=== PATIENT | female | born 1995 ===

== ENCOUNTER 2018-05-22 17:37 | Emergency (ER) | payer BC ==
[2018-05-22 17:52] VITALS: RESP 18
[2018-05-22 18:55] LABS: SQUAMOUS EPITHIAL 1 /hpf (0-5); URINE BILIRUBIN NEGATIVE (NEGATIVE); URINE BLOOD NEGATIVE (NEGATIVE); URINE CLARITY Clear (Clear); URINE COLOR Yellow (YELLOW); URINE GLUCOSE (UA) NORMAL (Normal); URINE LEUKOCYTE ESTERASE TRACE Leu/uL (Negative); URINE PROTEIN NEGATIVE (NEGATIVE); URINE UROBILINOGEN NORMAL mg/dL (0.2-1.0)
[2018-05-22 18:56] LABS: HCG,QUALITATIVE URINE NEGATIVE (NEGATIVE)
[2018-05-22 19:23] LABS: BASO # 0.1 K/uL (0.0-0.2); BASO % 0.6 % (0.0-2.0); EOS % 0.1 % (0.0-4.0); HEMOGLOBIN 13.9 g/dL (11.0-16.0); LYMPH % 7.2 % (20.0-40.0); MEAN CELL VOLUME 86.4 fL (81.0-99.0); MEAN CORPUSCULAR HEMOGLOBIN 28.5 pg (27.0-31.0); MEAN PLATELET VOLUME 8.2 fL (7.2-11.7); MONO # 0.4 K/uL (0.0-0.8); MONO % 3.1 % (0.0-10.0); NEUT # 11.9 K/uL (1.8-7.0); PLATELET COUNT 310 K/uL (130-400); RBC 4.86 Mil/uL (3.80-5.20); RED CELL DISTRIBUTION WIDTH 12.4 % (11.5-14.5); WHITE BLOOD COUNT 13.4 K/uL (4.8-10.8)
--- NOTE | 2018-05-22 19:25 | C.PDOC ---
History Of Present Illness 23 year old female presents to the ED c/o epigastric abdominal pain associated with nausea and vomiting for the past 3 days. Patient reports some bright red blood with her seema 3 days ago that resolved now. Patient states similar ep isodes in the past with no prior GI workup. Patient reports new onset bright red blood with her stool, patient states having normal bowel movements since. Patient also reports having new onset associated nausea and vomiting, patient still feeling nauseous now. Patient denies fever, chills, diarrhea, back pain, dysuria, hematuria, rash, recent travel, rectal pain. Time Seen by Provider: 05/22/18 19:12 Chief Complaint (Nursing): Abdominal Pain History Per: Patient History/Exam Limitations: no limitations Onset/Duration Of Symptoms: Days (3) Current Symptoms Are (Timing): Still Present Location Of Pain/Discomfort: Epigastric Quality Of Discomfort: "Pain" Associated Symptoms: Nausea, Vomiting. denies: Diarrhea, Urinary Symptoms Recent travel outside of the [place]: No Additional History Per: Patient Abnormal Vaginal Bleeding: No Past Medical History Reviewed: Historical Data, Nursing Documentation, Vital Signs Vital Signs: Last Vital Signs Temp 98.1 F 05/22/18 17:47 Pulse 108 H 05/22/18 17:47 Resp 18 05/22/18 17:47 BP 138/96 H 05/22/18 17:47 Pulse Ox 99 05/22/18 17:47 - Medical History PMH: No Chronic Diseases Surgical History: No Surg Hx Family History: States: Unknown Family Hx - Social History Hx Alcohol Use: No Hx Substance Use: No - Immunization History Hx Tetanus Toxoid Vaccination: No Hx Influenza Vaccination: No Hx Pneumococcal Vaccination: No Review Of Systems Constitutional: Negative for: Fever, Chills Cardiovascular: Negative for: Chest Pain Respiratory: Negative for: Cough, Shortness of Breath Gastrointestinal: Positive for: Nausea, Vomiting, Abdominal Pain. Negative for: Diarrhea, Rectal Pain Genitourinary: Negative for: Dysuria, Hematuria, Vaginal Discharge, Vaginal Bleeding Skin: Negative for: Rash Neurological: Negative for: Weakness, Numbness, Headache, Dizziness Physical Exam - Physical Exam Appears: Non-toxic, No Acute Distress Skin: Normal Color, Warm, Dry Head: Atraumatic, Normacephalic Eye(s): bilateral: Normal Inspection Oral Mucosa: Moist Neck: Normal ROM, Supple Chest: Symmetrical Cardiovascular: Rhythm Regular Respiratory: Normal Breath Sounds, No Rales, No Rhonchi, No Wheezing Gastrointestinal/Abdominal: Soft, Tenderness (epigastric), No Guarding, No Rebound, Other (obese) Back: No CVA Tenderness Extremity: Normal ROM, No Tenderness, No Swelling Neurological/Psych: Oriented x3, Normal Speech, Normal Cognition Gait: Steady ED Course And Treatment - Laboratory Results Result Diagrams: 05/22/18 19:20 05/22/18 19:20 O2 Sat by Pulse Oximetry: 99 (ON RA) Pulse Ox Interpretation: Normal - CT Scan/US CT abd/pelvis Other Rad Studies (CT/US): Read By Radiologist, Radiology Report Reviewed CT/US Interpretation: EXAM: CT Abdomen and Pelvis with IV contrast. CLINICAL HISTORY: Epigastric pain/nausea/vomiting/rectal bleed. TECHNIQUE: Axial computed tomography images of the abdomen and pelvis with intravenous contrast. 0.00 mGy-cm. CONTRAST: With; 100MLS VISI 320. COMPARISON: None provided. FINDINGS: LUNG BASES: The lung bases appear clear. No pleural effusions are seen. LIVER: Unremarkable. GALLBLADDER AND BILE DUCTS: The gallbladder appears within normal limits. No radioopaque gallstones are seen. No biliary ductal dilatation is evident. PANCREAS: Unremarkable. SPLEEN: Unremarkable. ADRENAL GLANDS: Unremarkable. KIDNEYS, URETERS, AND BLADDER: The kidneys appear within normal limits. There is no hydronephrosis or hydroureter. No urinary calculi are seen. STOMACH AND BOWEL: Unremarkable appearance of the stomach and bowel. No evidence of bowel obstruction. No evidence suggesting enteritis or colitis. APPENDIX: No evidence of acute appendicitis on CT examination. PERITONEUM: No free fluid. No free air. LYMPH NODES: Innumerable mesenteric lymph nodes are present associated with mild mesenteric inflammatory changes consistent with mesenteric lymphadenitis. REPRODUCTIVE: Uterus and ovaries are unremarkable. VASCULATURE: No evidence of abdominal aortic aneurysm. BONES: No aggressive appearing osseous lesion. No acute osseous pathology evident. IMPRESSION: Innumerable mesenteric lymph nodes are present associated with mild mesenteric inflammatory changes consistent with mesenteric lymphadenitis. . Electronically signed on May 22, 2018 8:59:25 PM EST by: Mino Gaines M.D., CIRO Certified By ABR & CBCCT. Fellowship Trained M [facility] and CT Specialist Progress - Re-Evaluation Re-evaluation Note: 05/22/18 21:19 FEELS BETTER , NO S/S ACUTE ABD. CT REPORT REVIEWED - Data Reviewed Data Reviewed: Lab, Diagnostic imaging, Old records Medical Decision Making Medical Decision Making: Plan: * Labs * CT abd/pelvis * Morphine 2 mg IVP * Zofran 4 mg IVP * UA Disposition Counseled Patient/Family Regarding: Studies Performed, Diagnosis, Need For Followup, Rx Given - Disposition Referrals: YOUR,PMD [Other] Disposition: HOME/ ROUTINE Disposition Time: 21:20 Condition: IMPROVED Additional Instructions: FOLLOW UP WITH YOUR PMD, POSSIBLE SENIOR TAX SPECIALIST. RETURN IF WORSENING SYMPTOMS. Prescriptions: Dicyclomine [Bentyl] 20 mg PO TID PRN #12 tab PRN Reason: Pain Ondansetron ODT [Zofran ODT] 4 mg PO TID PRN #12 odt PRN Reason: Nausea/Vomiting Instructions: Bloody Stools, Adult (DC), Acute Abdomen (Belly Pain), Adult (DC) Forms: [facility] (Telugu), Work Excuse - Clinical Impression Clinical Impression: Abdominal pain, Rectal bleed - Scribe Statement The provider has reviewed the documentation as recorded by the Scribvadim Corbett All medical record entries made by the Loribvadim were at my direction and personally dictated by me. I have reviewed the chart and agree that the record accurately reflects my personal performance of the history, physical exam, medical decision making, and the department course for this patient. I have also personally directed, reviewed, and agree with the discharge instructions and disposition.
[2018-05-22 19:46] LABS: ALB/GLOB RATIO 1.6 (1.0-2.1); ALBUMIN 4.9 g/dL (3.5-5.0); ALT/SGPT 32 U/L (9-52); AST/SGOT 22 U/L (14-36); BLOOD UREA NITROGEN 11 mg/dL (7-17); CALCIUM 9.4 mg/dl (8.6-10.4); GFR NON-AFRICAN AMERICAN > 60
[2018-05-22 19:53] LABS: LYMPHOCYTE 2 % (20-40); MONOCYTE 3 % (0-10); NEUTROPHIL 95 % (50-75); PLATELET ESTIMATE NORMAL (NORMAL); TOTAL CELLS COUNTED 100
[2018-05-22] MEDS ORDERED: Iodixanol 320 MG/ML 100 ML BOTTLE IV ONE (20:03)
[2018-05-22 20:33] VITALS: BP 136/79; PULSE 87; TEMP 98
[2018-05-22 21:00] VITALS: O2SAT 99
--- NOTE | 2018-05-23 10:21 | CT ---
Date of service: 05/22/2018 PROCEDURE: CT Abdomen and Pelvis with contrast HISTORY: abd pain epig nv, brbpr COMPARISON: None available. TECHNIQUE: CT scan of the abdomen and pelvis was performed after administration of intravenous contrast. Oral contrast was not administered. Coronal and sagittal reformatted images were obtained. Contrast dose: Radiation dose: Total exam DLP = 1144.19 mGy-cm. This CT exam was performed using one or more of the following dose reduction techniques: Automated exposure control, adjustment of the mA and/or kV according to patient size, and/or use of iterative reconstruction technique. FINDINGS: LOWER THORAX: The visualized lungs are clear. LIVER: Normal in size with homogeneous enhancement. No gross lesion or ductal dilatation. GALLBLADDER AND BILE DUCTS: Well distended. No calcified gallstones, wall thickening or pericholecystic fluid. PANCREAS: Normal in size with homogeneous enhancement. No gross lesion or ductal dilatation. SPLEEN: There is mild splenomegaly. There is a 1.3 cm fluid density lesion in the anterior aspect of the interpolar region of the spleen which may represent a cyst or hemangioma. ADRENALS: No discrete nodule. KIDNEYS AND URETERS: Normal in size with homogeneous enhancement. No hydronephrosis. No solid mass. VASCULATURE: No aortic aneurysm. BOWEL: Evaluation of the bowel is limited in the absence of oral contrast. The small bowel loops are normal in caliber. The colon is grossly normal in appearance. No bowel wall thickening or obstruction. APPENDIX: Not distinctly identified. There are no inflammatory changes in the right lower quadrant. PERITONEUM: No free fluid. No free air. LYMPH NODES: There are small subcentimeter mesenteric lymph nodes, most prominent in the right lower quadrant. BLADDER: Well distended and normal in appearance. REPRODUCTIVE: The uterus is normal in size. BONES: No acute fracture. Within normal limits for the patient's age. OTHER FINDINGS: None. IMPRESSION: No acute abdominal or pelvic abnormality. Subcentimeter mesenteric lymph nodes in the right lower quadrant may represent nonspecific adenitis. A preliminary report was provided by [facility].
== END 2018-05-22 21:29 | disposition home or self-care (01) ==
LOC: C.ER 17:37
DX: K62.5 Hemorrhage of anus and rectum (principal); R10.13 Epigastric pain
CPT/HCPCS: 74177; 80053; 81001; 83690; 84703; 85025; 96374; 96375; 99284; J2270; J2405; Q9967

== ENCOUNTER 2018-06-19 09:31 | Day surgery (SDC) | payer BC ==
[2018-06-18 12:56] VITALS: BMI 36.5
[2018-06-19] MEDS ORDERED: Midazolam 2 MG/2 ML VIAL ONE (11:57)
[2018-06-19] MEDS ORDERED: Propofol 10 mg/ml Inj (20 ML) ONE ×2 (11:57→12:16)
[2018-06-19 13:11] VITALS: O2SAT 98
[2018-06-19 14:13] VITALS: BP 136/76; PULSE 80; RESP 16; TEMP 98
== END 2018-06-19 13:40 | disposition home or self-care (01) ==
LOC: C.ENDO 09:31
PROVIDERS: ATTEND Internal Medicine Gastroenterology
DX: K63.5 Polyp of colon (principal); K29.50 Unspecified chronic gastritis without bleeding; K62.5 Hemorrhage of anus and rectum; K64.0 First degree hemorrhoids; R10.13 Epigastric pain
CPT/HCPCS: 43239; 45380; 84703; 88305; 88313; 88342; J2001; J2250; J2704; J3010; J7040